=== PATIENT | male | born 1950 | race Caucasian/White ===

== ENCOUNTER 2017-12-11 13:25 | Day surgery (SDC) | payer BC ==
[2017-12-11] MEDS ORDERED: Fentanyl 100 MCG/2 ML VIAL ONE ×2 (15:43→17:45)
[2017-12-11] MEDS ORDERED: Iothalamate Meglumine 60% 50 ML VIAL FS ONE (17:33)
[2017-12-11] MEDS ORDERED: Levofloxacin 500 mg/D5W 100 ml Premix Bag ONE (17:46)
[2017-12-11] MEDS ORDERED: HYDROcodone/Acetaminophen 5/325 mg Tablet ONE (20:00)
--- NOTE | 2017-12-11 23:40 | OP ---
DATE OF PROCEDURE: 12/11/2017 PREOPERATIVE DIAGNOSIS: Incomplete emptying urethral stricture disease, prostate cancer. PROCEDURE PERFORMED: Cysto laser, visual internal urethrotomy, urethral dilatation, difficult Walsh placement. SPECIMENS REMOVED: None. ESTIMATED BLOOD LOSS: Minimal. ANESTHETIC: General. DRAINS PLACED: A 20-Scottish catheter tip, 20 mL in the balloon. FINDINGS: He had a narrowed urethra and then a dense stricture at the membranous urethra and also at the anastomosis. There was a lot of edematous tissue in this region. There is no evidence of recta l injury. 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 He has history of radiation th erapy for his prostate cancer following radical prostatectomy number of years ago. No obvious tumor, stone or foreign body in the bladder or in the urethral stricture. OPERATIVE TECHNIQUE: Obtain written and verbal consent from the patient after receiving IV Levaquin, he was taken to the operating suite. He was placed in the supine position on the treatment table. PlexiPulses were placed on his lower extremities and turned on. He was given a general anesthetic, o ral obturator intubation. He was placed in the dorsal lithotomy position, sterilely prepped and drap ed. Cystoscopy was performed with a 17-Scottish sheath. This was passed, well lubricated under direct vision with the aid of a 30 degree lens through the male urethra and into the level of the stricture at the membranous urethra. Ostium could be seen. We fed a guidewire through it, but it went throug h a couple of centimeters and met some resistance, so we are not sure if we are in the bladder or not . We fed at this point a 5 Scottish Pollack catheter over this wire and removed the wire, we did get a drainage of very dark yellow colored urine. We then brought in an angle tipped Glidewire, fed it th rough the open-ended catheter and it went in and curled up in the bladder allowing us then to place t he open-ended catheter over this angle tipped Glidewire further into the bladder and then removing th e Glidewire and replacing it with a regular 0.038 wire. We then attempted to initially just pass the 17-Scottish sheath along and over the wire, but the stricture was too dense. We brought in a Holmium laser and used this to incise the stricture under direct vision at the 12 o'clock position until we c ould get the beak of the 17-Scottish sheath through this area of the stricture and then we were able to get it to go directly into the bladder through the second part of the stricture, which was right at the anastomosis, which actually was fairly easy to dilate that. We drained the bladder, left the wir e in place, removed these instruments, backloaded the wire then through the 20-Scottish sheath and did the same again under direct vision and then backloaded through the 22 Scottish sheath and did the same again under direct vision. At this point, we removed the instruments and brought in 20 Scottish counci l tip catheter and we placed it over the wire and it went easily into the bladder, inflated with 20 m L. It was draining a nice gold colored urine and we left an indwelling removing at this point the gu idewire. It was hooked up to a drainage bag and secured to his right thigh and no traction with a ca th secure. He was taken out of dorsal lithotomy position, awakened, extubated, and taken by angelika noguera to the recovery room.
== END 2017-12-11 21:39 | disposition home or self-care (01) ==
LOC: ERS 13:25 → SDC 13:49
PROVIDERS: ATTEND Urology
PROC: 0T7D8ZZ Dilation of Urethra, Via Natural or Artificial Opening Endoscopic (ICD-10-PCS; principal; 2017-12-11)
PROC: 0TND8ZZ Release Urethra, Via Natural or Artificial Opening Endoscopic (ICD-10-PCS; principal; 2017-12-11)
DX: R33.9 Retention of urine, unspecified (principal); N35.9 Urethral stricture, unspecified; E78.5 Hyperlipidemia, unspecified; I10 Essential (primary) hypertension; Z79.82 Long term (current) use of aspirin; Z79.2 Long term (current) use of antibiotics; Z79.899 Other long term (current) drug therapy; Z90.79 Acquired absence of other genital organ(s); Z85.46 Personal history of malignant neoplasm of prostate; Z92.3 Personal history of irradiation
CPT/HCPCS: 99284; C1758; C1769; J1956; J3010; Q9961